=== PATIENT | female | born 1935 | race Caucasian/White ===

== ENCOUNTER 2024-05-29 10:09 | Outpatient (REF) | payer MEDICARE, OTHER, SELFPAY ==
--- NOTE | ~2024-05-29 | XR_ITS ---
EXAMINATION: XR KNEE, RIGHT XR KNEE, LEFT CLINICAL INFORMATION: Right and left knee pain. Osteoarthritis. COMPARISON: None available. TECHNIQUE: AP view of the right and left knee. Lateral and sunrise views of the right knee. FINDINGS: RIGHT KNEE: Moderate lateral compartment joint space narrowing. Tricompartmental marginal osteophytes. No acute fracture or dislocation. No concerning lytic or blastic osseous lesion. No abnormal soft tissue calcification. Trace joint effusion. LEFT KNEE: Moderate medial compartment joint space narrowing with medial and lateral compartment marginal osteophytes. No osseous erosion. No fracture or dislocation. No abnormal soft tissue calcification. XR/XR knee RT 3V IMPRESSION: RIGHT KNEE: Tricompartmental osteoarthritis, most prominent within the lateral compartment. Trace joint effusion. LEFT KNEE: Moderate medial and mild lateral compartment osteoarthritis. Electronically signed by: Tolu Loving MD 06/02/2024 10:22 AM EDT
--- NOTE | ~2024-05-29 | XR_ITS ---
EXAMINATION: XR KNEE, RIGHT XR KNEE, LEFT CLINICAL INFORMATION: Right and left knee pain. Osteoarthritis. COMPARISON: None available. TECHNIQUE: AP view of the right and left knee. Lateral and sunrise views of the right knee. FINDINGS: RIGHT KNEE: Moderate lateral compartment joint space narrowing. Tricompartmental marginal osteophytes. No acute fracture or dislocation. No concerning lytic or blastic osseous lesion. No abnormal soft tissue calcification. Trace joint effusion. LEFT KNEE: Moderate medial compartment joint space narrowing with medial and lateral compartment marginal osteophytes. No osseous erosion. No fracture or dislocation. No abnormal soft tissue calcification. XR/XR knee LT 1V IMPRESSION: RIGHT KNEE: Tricompartmental osteoarthritis, most prominent within the lateral compartment. Trace joint effusion. LEFT KNEE: Moderate medial and mild lateral compartment osteoarthritis. Electronically signed by: Tolu Loving MD 06/02/2024 10:22 AM EDT
== END 2024-05-29 10:10 | disposition home or self-care (01) ==
LOC: HO.HOSX 10:09
DX: M25.562 Pain in left knee (principal); M17.11 Unilateral primary osteoarthritis, right knee
CPT/HCPCS: 20610; 73560; 73562; 99202; J1010

== ENCOUNTER 2024-05-29 10:46 | Outpatient (AMB) | payer MEDICARE, MEDICAID, SELFPAY ==
--- NOTE | 2024-05-29 11:06 | A.OFFVIS_ITS ---
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 Pt states the pain started a year ago with no known injury. Pt states she was in PT and states it wasn't helpful. Pt states it has gotten worse within the past few months. Pt denies any previous injury or cortisone injections. Pt states sometimes her knee will give out. Pt states she uses a heating pad which does help somewhat and states the ibuprofen and tylenol helps sometimes but not all the time. 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 The patient reports that there was no particular inciting event or injury that caused the start of this pain, but states that it has been very consistent since this time. The patient reports that her pain improves with rest, but worsens with activity such as ambulation and any twisting motions with her knee. The patient reports that her pain is worst in the lateral aspect of her right knee, particularly in the lateral joint line and ?inside? the lateral right knee. Patient denies any locking or catching of her right knee. No other acute complaints or concerns at this time. Review of Systems Const All systems reviewed & are unremarkable except as noted in HPI and below Physical Exam Extrem Other: On Inspection, there is a mild effusion of the right knee when compared to the left, particularly in the anterolateral joint line No erythema, ecchymosis noted No lacerations, abrasions, open areas No evidence of infection noted Patient reports no tenderness to palpation in the medial joint line, lateral joint line, patella, peripatellar area, posterior knee Patient is able to extend the right knee to 0 degrees without difficulty Patient is able to flex the right knee to 120 degrees without difficulty Negative Mildred's Distal sensation intact Capillary refill brisk Office Procedures Joint Injection/Aspiration Joint Injection/Aspiration Primary Site: right knee Prep: site was prepped using aseptic technique, ethochloride spray was applied and injection warnings given Injected: 80 mg of, DepoMedrol, with 8 mL of and 1% plain lidocaine Approach Used: anterolateral Procedure: The patient tolerated the procedure well, but had some pain with the injection and there was some relief with the local anesthesia Coding - Large joint Procedure code (CPT) selection complete Results Reviewed Results Reviewed: X-rays obtained in the office today and independently reviewed by me, Pradeep Rosenthal PA-C, demonstrate moderate to severe arthritic changes of the right knee, with significant joint space narrowing and small osteophyte formation. X-rays also revealed moderate arthritic changes of the left knee. No fracture or acute bony abnormality noted Assessment & Plan Assessment & Plan (1) Osteoarthritis of right knee: Code(s): M17.11 - Unilateral primary osteoarthritis, right knee Category: Medical Plan 1. Right knee osteoarthritis Pain ongoing for approximately 5-6 months Conservative, nonoperative, and operative treatment plans were discussed with the patient at this time. The patient would like to proceed with steroid injection of the right knee The risks and benefits of a steroid injection including but not limited to risk of damage to blood vessels, nerves, tendons, infection, skin bleaching, failure to improve symptoms, increased pain, and possible need for further injections or other intervention were discussed with the patient and the patient wishes to proceed with the steroid injection. Once consent was obtained, I aseptically prepped the area over the anterolateral joint line of the right knee. I then injected the area over the lateral epicondyle with a combination of 80 mg of dexamethasone and 8 mL of 1% lidocaine. The patient tolerated the procedure well with no complications. If the patient continues to experience symptoms over the following few weeks or months, they can make an appointment to return and discuss alternative treatment measures, such as physical therapy. Follow-up prn Orders: Orders XR knee RT 3V 05/29/24 M17.11 - Unilateral primary osteoarthritis, right knee XR knee LT 1V 05/29/24 M25.562 - Pain in left knee Coding Level of Care Code New Pt Level 3 (48642) Diagnoses Osteoarthritis of right knee M17.11 CPT Codes Coding - Large joint: 13931 - Large joint ([id number])
== END 2024-05-29 12:16 | disposition home or self-care (01) ==
PROVIDERS: PCP Physician Assistant
DX: M17.11 Unilateral primary osteoarthritis, right knee (principal)
CPT/HCPCS: 20610; 99203

== ENCOUNTER 2024-09-04 09:41 | Outpatient (AMB) | payer MEDICARE, MEDICAID, SELFPAY ==
--- NOTE | 2024-09-04 09:46 | MHC.OFFVIS ---
Vital Signs 09/04/24 09:52 Height 5 ft 4 in Weight 124 lb BMI 21.3 Handedness Right Intake Visit Reasons: OV- Right knee pain, last inj 05/29/24 Intake Note: Nelda is a 88 year old female who presents today for a follow up visit of her right knee OA. Patient received a right knee injection on 05/29/2024 which did not provide her any relief. When she stands her right knee occasionally gives out. Tylenol and heating pad has not offered her any relief. She was once a very active person and is frustrated with how this has stopped her. Patient would like to discuss other treatment option. She has tried physical therapy and went home with activities to try however this also provided no relief in her pain. Allergies No Known Allergies Allergy (Verified 09/04/24 09:53) HPI HPI OV- Right knee pain, last inj 05/29/24: Details: Patient is an 88-year-old female who presents for follow-up evaluation of right knee osteoarthritis with associated pain with previous steroid injection, date of injection 05/29/2024. Today, the patient reports that she experienced very minimal relief, and feels that her knee pain is worse now than it was prior to an injection. The patient states that she feels her knee is unstable, and feels as if it occasionally ?in his out? when she is attempting to rise from a seated position. Patient states she would like to explore any alternative treatment options, except for surgery, which she had adamantly against. No other acute complaints or concerns at this time. Physical Exam Vital Signs: BMI result Body Mass Index 21.3 Extrem Other: On Inspection, there is a mild effusion of the right knee when compared to the left, particularly in the anterolateral joint line No erythema, ecchymosis noted No lacerations, abrasions, open areas No evidence of infection noted Patient reports no tenderness to palpation in the medial joint line, lateral joint line, patella, peripatellar area, posterior knee Patient is able to extend the right knee to 0 degrees without difficulty Patient is able to flex the right knee to 120 degrees without difficulty Negative Mildred's Distal sensation intact Capillary refill brisk Assessment & Plan Assessment & Plan (1) Osteoarthritis of right knee: Code(s): M17.11 - Unilateral primary osteoarthritis, right knee Category: Medical Plan 1. Osteoarthritis of right knee Status post injection on 05/29/2024 Minimal relief with previous injection At this time, patient is educated on alternative treatment options, namely gel injections, physical therapy, and surgical intervention, namely a knee replacement Patient was once again adamant that she has no interest in any surgical intervention, but would like to explore gel injections Patient also states she would like a knee brace to help with the feelings of instability that she experiences We will initiate insurance approval process for gel injections Patient also provided with Genumed knee brace for stabilization of her right knee Patient was informed that once we get approval from her insurance company, we will call to make an appointment for her gel injections if approved Patient was amenable to this plan Patient will follow-up after approval is obtained from her insurance company for gel injections, sooner with any acute concerns Coding Level of Care Code Est Pt Level 3 (96477) Diagnoses Osteoarthritis of right knee M17.11
[2024-09-04 09:52] VITALS: BMI 21.3
== END 2024-09-04 10:07 | disposition home or self-care (01) ==
PROVIDERS: PCP Physician Assistant
DX: M17.11 Unilateral primary osteoarthritis, right knee (principal)
CPT/HCPCS: 99213

== ENCOUNTER → 2024-09-04 09:41 | Outpatient (BNVA) | payer MEDICARE, MEDICAID, SELFPAY | PROVIDERS: PCP Physician Assistant | DX: M17.11 Unilateral primary osteoarthritis, right knee (principal) | CPT/HCPCS: 99212 ==

== ENCOUNTER 2024-10-30 10:49 | Outpatient (AMB) | payer MEDICARE, MEDICAID, SELFPAY ==
--- NOTE | 2024-10-30 10:50 | A.OFFVIS_ITS ---
Vital Signs 10/30/24 10:51 Height 5 ft 4 in Weight 124 lb BMI 21.3 Intake Visit Reasons: Inj- RT knee Durolane inj Intake Note: Nelda is a 88 year old female who presents today for a right knee Durolane injection. Allergies No Known Allergies Allergy (Verified 10/30/24 10:58) HPI HPI Inj- RT knee Durolane inj: Details: Patient is an 88-year-old female who presents for right knee Durolane injection. [facility] Social History (Updated 10/30/24 @ 10:58 by TANGELA Diehl) Current occupational status: retired Physical Exam Vital Signs: BMI result Body Mass Index 21.3 Office Procedures Joint Inj/Aspir; Non-Pain Clin Joint Injection/Drain Prep: site was prepped using aseptic technique and injection warnings given Approach Used: anterolateral Procedure: The patient tolerated the procedure well and but had some pain with the injection Shoulders, Hips, Knees, Knee Large Joint Injection 24060: Right Knee Coding Procedure code (CPT) selection complete Assessment & Plan Assessment & Plan (1) Osteoarthritis of right knee: Code(s): M17.11 - Unilateral primary osteoarthritis, right knee Category: Medical Plan 1. Osteoarthritis of right knee Durolane injection performed today Patient is educated that she can not get another Durolane injection for 6 months Patient expresses understanding of this Patient will follow-up as needed with any acute concerns Coding Level of Care Code Procedure Only Diagnoses Osteoarthritis of right knee M17.11 CPT Codes Shoulders, Hips, Knees, - Knee Large Joint Injection 76657: Right Knee ([id number])
[2024-10-30 10:51] VITALS: BMI 21.3
--- OUTSIDE RECORDS SUMMARY | 2024-10-30 15:37 | XMS_ITS | Clinical Summary ---
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 28 g 2 09/05/20 20 Active fluticasone propionate (FLONASE) 50 mcg/actuation nasal sprayIndications: Nasal congestion USE 1 SPRAY IN EACH NOSTRIL TWICE DAILY FOR 30 DAYS 48 mL 3 09/22/20 21 Active meclizine 25 mg chewable tabletIndications :Vertigo Place 1 Tablet into mouth, chew and swallow 3 (three) times daily as needed for nausea 20 Tablet 1 12/08/19 23 Active blood pressure kit med and lrgIndications:Pr imary hypertension Check blood pressure once daily goal < 130/80 1 Kit 08/03/20 23 Active gabapentin (NEURONTIN) 100 mg capsule TAKE 1 CAPSULE BY MOUTH ONCE AT NIGHT FOR 5 DAYS, THEN 1 CAP BY MOUTH TWICE A DAY 08/11/20 23 Active PROLENSA 0.07 % drop INSTILL 1 DROP INTO AFFECTED EYE EVERY EVENING DIRECTED 09/09/20 23 Active celecoxib (CELEBREX) 200 mg capsule Take 200 mg by mouth once daily 09/14/20 23 Active scopolamine (TRANSDERM-SCOP) 1 mg over [address]: [address] 1 Patch onto the skin every third day (every 72 hours) 24 Patch 1 01/28/20 24 Active nystatin (MYCOSTATIN) 100,000 unit/gram powderIndications :Tinea corporis APPLY TO AFFECTED AREA TWICE A DAY 30 g 3 05/10/20 24 Active acyclovir (ZOVIRAX) 400 mg tabletIndications :HSV (herpes simplex virus) infection TAKE 1 TABLET BY MOUTH TWICE A DAY 180 Tablet 1 06/01/20 24 Active levothyroxine 100 mcg tabletIndications :Acquired hypothyroidism TAKE 1 TABLET BY MOUTH EVERY DAY 90 Tablet 1 07/24/20 24 Active acetaminophen (TYLENOL 8 HOUR) 650 mg CR tablet TAKE 1 TABLET BY MOUTH EVERY 8 HOURS NEEDED FOR PAIN 60 Tablet 1 08/07/20 24 Active lovastatin (MEVACOR) 10 mg tabletIndications :Hypercholesterol emia TAKE 1 TABLET BY MOUTH ONCE DAILY WITH DINNER 90 Tablet 3 10/26/19 25 026 Active OYSTER SHELL CALCIUM-VIT D3 500 mg-10 mcg (400 unit) tabletIndications :Osteopenia, unspecified location TAKE 1 TABLET BY MOUTH EVERY DAY 90 Tablet 1 10/30/19 25 Active acyclovir (ZOVIRAX) 5 % ointmentIndicatio ns:Herpetic lesion Apply topically every 4 to 6 (four to six) hours as needed for other reason (lesions) To visible lesions 30 g 3 10/30/19 25 Active lovastatin (MEVACOR) 10 mg tabletIndications :Hypercholesterol emia Take 1 Tablet by mouth once daily with dinner 90 Tablet 3 09/29/20 23 025 Discontinued acyclovir (ZOVIRAX) 5 % ointmentIndicatio ns:Herpetic lesion Apply topically every 4 to 6 (four to six) hours as needed for other reason (lesions) To visible lesions 30 g 3 04/05/20 24 025 Discontinued CALCIUM 500 WITH D 500 mg-10 mcg (400 unit) tabletIndications :Osteopenia, unspecified location TAKE 1 TABLET BY MOUTH EVERY DAY 90 Tablet 1 05/04/20 24 025 Discontinued Active Problems Problem Noted Date Diagnosed Date Acquired atrophy of thyroid 08/10/2022 Depression 08/10/2022 Acquired hypothyroidism 06/18/2022 Major depressive disorder wi th single episode, in remission ([facility]) 06/18/2022 Encounter for screening colonoscopy 06/18/2022 Herpes simplex vulvovaginitis 06/18/2022 Osteopenia 06/22/2021 Mixed hyperlipidemia 07/06/2019 Resolved Problems Problem Noted Date Diagnosed Date Resolved Date Genital herpes simplex 08/10/202211/11 Immunizations Name Administration Dates Next Due Flu, High Dose, 65y+, Fluzon e High Dose 08/03/2023,07/31/2022,05/23/2020 INFLUENZA, SEASONAL, INJECTABLE 08/04/20 18,07/04/2017,07/30/2016,09/10,07/03/2014,07/18/2013,08/13/2006 ,08/07/2005,09/05/2001 Influenza (FLUZONE), high-do se, trivalent, PF 06/17/2019,06/17/2019,08/06/2018,08/06,07/03/2017,07/03/2017 Influenza, Whole 06/29/2012, 1,07/21/2010,07/03,07/18/2008,08/19/2007 MODERNA COVID-19 VACCINE BIV ALENT, BLUE CAP, 6M+ 08/10/2022 PFIZER COVID VACCINE, PURPLE CAP, 12+ ,12/04/2020,12/04/2020,11/13,11/13/2020 PNEUMOCOCCAL CONJUGATE PCV 13 06/27/2020, 015 PNEUMOCOCCAL POLYSACCHARIDE PPV23 01/01/2022,01/2005 PPD 08/01/2019 TDAP 04/09/2021 Td (adult) unspecified 11/25/2009 ZOSTER VACCINE, RECOMBINANT (SHINGRIX) 0 04/09/2021,06/10/2018,06/10/2018,06/10 Family History Medical History Relation Name Comments mva Son 1 Alcohol/Drug Abuse Son 2 Relation Name Status Comments Daughter Alive Father Mother Son 1 Son 2 Alive Son 3 Alive Son 4 Alive Social History Tobacco Use Types Packs/Day Years Used Date Smoking Tobacco: Never Smokeless Tobacco: Never Tobacco Cessation:Counseling Given: Not Answered Alcohol Use Standard Drinks/Week Comments Never 0 (1 standard drink = 0.6 oz pur e alcohol) Social Connections Answer Date Recorded Connectedness 1 04/05/2024 Financial Resource Strain Answer Date R ecorded Financial Resource Strain 1 2023 Stress Answer Date Recorded Stress 1 04/05/2024 Physical Activity Answer Date Recorded Physical Activity 0 07/06/2019 Food Insecurity Answer Date Recorded Food 1 04/05/2024 Transportation Needs Answer Date Record ed Transportation 1 04/05/2024 Housing Stability Answer Date Recorded Housing 1 04/05/2024 Safety and Environment Answer Date Jorge rded Safety 1 04/05/2024 Utilities Answer Date Recorded Utilities 1 04/05/2024 Employment Answer Date Recorded Employment 0 07/06/2019 Comments No Sex and Gender Information Value Date Recorded Sex Assigned at Female 07/06/2019 6:43 AM PDT Legal Sex Female 10:37 AM PDT Gender Identity Female 07/06/2019 6:43 AM PDT Sexual Orientation Straight 07/06/2019 6: 43 AM PDT Last Filed Vital Signs Vital Sign Reading Time Taken Comments Blood Pressure 148/82 04/05/2024 4:09 PM EDT Pulse 78 04/05/2024 4:09 PM EDT Temperature 36.8 ??C (98.3 ??F) 04/05/2024 4:09 PM ED T Respiratory Rate 18 04/05/2024 4:09 PM EDT Oxygen Saturation 95% 04/05/2024 4:09 PM EDT Inhaled Oxygen Concentration - - Weight 57.6 kg (127 lb) 04/05/2024 4:09 PM EDT Height 157.5 cm (5' 2 ) 04/05/2024 4:09 PM EDT Body Mass Index 23.23 04/05/2024 4:09 PM EDT Plan of Treatment Health Maintenance Due Date Last Done Comments Advanced Care Planning 01/25/1936 Medicare Annual Wellness Visit 05/05/2024 0 05/05/2023, 08/10/2022, 04/09/2021 [id number] ( season) 2024 08/10/2022, 09/22/2021, 12/04/2020, Additional history exists Imm-Influenza (#1) 2024 08/03/2023, 1 , 05/23/2020, Additional history exists Depression Monitoring 07/06/2024 04/05/2024 , 07/08/2023, 02/10/2023, Additional history exists Falls Prevention 09/29/2024 09/29/2023, 04/2022, 04/09/2021 Alcohol and Drug Screen 10/04/2024 04/05/20, 04/05/2024, 07/08/2023, Additional history exists Hypertension Screening (#1) 04/05/2025 TSH Monitoring 04/05/2025 04/05/2024, 06/0 10/2022, 01/05/2022, Additional history exists Tobacco Screening 04/05/2025 04/05/2024 Imm-DTaP/Tdap/Td (2 - Td or Tdap) 04/09/2031 021, 11/25/2009 Imm-Zoster, Recombinant Completed 04/09/20 21, 06/10/2018, 06/10/2018, Additional history exists Bone Density Screening Completed 06/11/2021 Imm-Pneumococcal 65+ Completed 01/01/2022, 06/27/2020, 03/29/2015, Additional history exists Procedures Procedure Name Priority Date/Time Associated Diagnosis Comments REFERRAL TO ORTHOPEDICS Routine 09/04/2024 3:00 AM EST Right leg pain TSH W/RFLX FREE T4 Routine 04/05/2024 4: 37 PM EDT Dizziness Abnormal results of thyroid function studies REFERRAL FOR BONE DENSITY TESTING Routine 06/11/2021 12:00 AM EDT Screening for osteoporosis from Last 3 Months or Most Recently Relevant to Health Maintenance Results * REFERRAL TO ORTHOPEDICS (09/04/2024 3:00 AM EST) 09/04/2024 3:00 AM EST Sanjiv WATTS REFERRAL Final Result * (ABNORMAL) TSH W/RFLX FREE T4 (04/05/2024 4:37 PM EDT) TSH W/REFLEX TO FT4 0.33(L) 0.40 - 4.50 mIU/L [facility] Blood Blood / Unknown 04/05/2024 4 :37 PM EDT 04/05/2024 4:37 PM EDT Sanjiv WATTS LAB - BLOOD DRAW Final Result [facility] [address] [address], [facility] [address] [place] [address] * REFERRAL FOR BONE DENSITY TESTING (06/11/2021 12:00 AM EDT) 06/11/2021 Sanjiv WATTS IMG RFL DXA Edited Result - Final from Last 3 Months or Most Recently Relevant to Health Maintenance Insurance [employer] Care Teams Packaging Line Operator Relationship Specialty Start Date End Date Sanjiv Ruiz PA [address] [place] [id number] PCP - General Internal Medicine 05/26/19
== END 2024-10-30 11:07 | disposition home or self-care (01) ==
PROVIDERS: PCP Physician Assistant
DX: M17.11 Unilateral primary osteoarthritis, right knee (principal)
CPT/HCPCS: 20610

== ENCOUNTER → 2024-10-30 10:49 | Outpatient (BNVA) | payer MEDICARE, MEDICAID, SELFPAY | PROVIDERS: PCP Physician Assistant | DX: M17.11 Unilateral primary osteoarthritis, right knee (principal) | CPT/HCPCS: 20610; J7318 ==

== ENCOUNTER 2025-07-24 13:38 | Outpatient (AMB) | payer MEDICARE, MEDICAID, SELFPAY ==
[2025-07-24 14:02] VITALS: BMI 21.3
--- NOTE | 2025-07-24 14:02 | MHC.OFFVIS ---
Vital Signs 07/24/25 14:02 07/24/25 14:02 Height 5 ft 4 in 5 ft 4 in Weight 124 lb 124 lb BMI 21.3 21.3 Intake Visit Reasons: OV-Rt knee Durolane inj f/u Intake Note: Nelda is an 89 year old female who presents today for follow up of her Right Knee Osteoarthritis. She was last seen 10/30/24 where she was given a Right Knee Durolane injection. Patient states the injection provided good relief however at this time she would like to have a right knee cortisone injection. Accompanied by: cousinTatum Allergies No Known Allergies Allergy (Verified 07/24/25 14:02) HPI HPI OV-Rt knee Durolane inj f/u: Details: Nelda is an 89 year old female who presents today for follow up of her Right Knee Osteoarthritis. She was last seen 10/30/24 where she was given a Right Knee Durolane injection. Patient states the injection provided good relief however at this time she would like to have a right knee cortisone injection. [facility] Social History (Updated 10/30/24 @ 10:58 by TANGELA Diehl) Current occupational status: retired Review of Systems Const All systems reviewed & are unremarkable except as noted in HPI and below Physical Exam Vital Signs: BMI result Body Mass Index 21.3 Extrem Other: On Inspection, there is a mild effusion of the right knee when compared to the left, particularly in the anterolateral joint line No erythema, ecchymosis noted No lacerations, abrasions, open areas No evidence of infection noted Patient reports no tenderness to palpation in the medial joint line, lateral joint line, patella, peripatellar area, posterior knee Patient is able to extend the right knee to 0 degrees without difficulty Patient is able to flex the right knee to 120 degrees without difficulty Antalgic gait noted, particularly of the right leg Negative Mildred's Distal sensation intact Capillary refill brisk Assessment & Plan Assessment & Plan (1) Osteoarthritis of right knee: Code(s): M17.11 - Unilateral primary osteoarthritis, right knee Category: Medical Plan 1. Osteoarthritis of right knee Patient is educated about this condition Patient is educated about the typical treatment course At this time, I feel it is most prudent for the patient to get repeat authorization for another gel injection, as steroid injections previously have not been helpful and she did get good relief for approximately 8 months with gel injections I do not feel that repeating steroid injection is necessarily the best thing for her, as she did not get good relief from previous steroid injections. Patient will follow-up after we get authorization for repeat gel injections, sooner with any acute concerns Coding Level of Care Code Est Pt Level 3 (83197) Diagnoses Osteoarthritis of right knee M17.11
--- OUTSIDE RECORDS SUMMARY | 2025-07-24 17:56 | XMS_ITS | Clinical Summary ---
Author Organization [address] [place] [address] Address [address] [place] [address] Phone Care Team Providers Care Manufacturers Service Representative Name Role Phone Avelina Ruiz Primary Care Provider [phone] Allergies No known active allergies Social History Tobacco Use Types Packs/Day Years Used Date Smoking Tobacco: Never Assessed Comments Unknown Sex and Gender Information Value Date Recorded Sex Assigned at Female 03/23/2025 11:06 AM EDT Legal Sex Female 1:49 AM EST Gender Identity Female 03/23/2025 11:06 AM EDT Sexual Orientation Straight 03/23/2025 11 :06 AM EDT Plan of Treatment Health Maintenance Due Date Last Done Comments RSV Immunization Adult Patients (1 - 1-dose 75+ series) 2012 Falls Risk Assessment 09/06/2022 Medicare Annual Wellness Visit 09/06/2022 Social Influencers of Health Screening 09/06/2022 Depression Screening 10/04/2024 COVID-19 Vaccine ( season) 2025 08/10/2022, 09/22/2021, 12/04/2020, Additional history exists Influenza Vaccine (#1) 2025 , 07/31/2022, 05/23/2020, Additional history exists Cholesterol Screening (Lipid Panel) 12/05/2029 12/05/2024, 12/05/2024, 04/09/2021, Additional history exists DTaP,Tdap,and Td Vaccines (3 - Td or Tdap) 04/09/2031 04/09/2021, 11/25/2009 Osteoporosis Screening (Bone Density Screening) 06/11/2031 06/11/2021 Zoster Vaccines Completed 04/09/2021, 06/10/2018 Pneumococcal Vaccine: 50+ Years Completed 01/01/2022, 06/27/2020, 03/29/2015, Additional history exists HIB Vaccines Aged Out No longer eligi ble based on patient's age to complete this topic HPV Vaccines Aged Out No longer eligi ble based on patient's age to complete this topic Hepatitis A Vaccines Aged Out No long er eligible based on patient's age to complete this topic Hepatitis B Vaccines Aged Out No long er eligible based on patient's age to complete this topic IPV Vaccines Aged Out No longer eligi ble based on patient's age to complete this topic MMR Vaccines Aged Out No longer eligi ble based on patient's age to complete this topic Meningococcal ACWY Vaccine Aged Out N o longer eligible based on patient's age to complete this topic Meningococcal B Vaccine Aged Out No l onger eligible based on patient's age to complete this topic RSV Immunization Patients Under 20 months Aged Out No longer eligible based on patient's age to complete this topic Varicella Vaccines Aged Out No longer eligible based on patient's age to complete this topic Procedures Procedure Name Priority Date/Time Associated Diagnosis Comments [facility] DEXA AXIAL SKELETON Routine 06/11/2021 11:36 AM EDT Encounter for screening for osteoporosis from Last 3 Months or Most Recently Relevant to Health Maintenance Results * [facility] DEXA AXIAL SKELETON (06/11/2021 11:36 AM EDT) Anatomical Region Laterality Modality Mammography 06/11/2021 10:1 0 AM EDT Narrative 06/11/2021 11:36 AM EDT Diagnostic Imaging Department [address] [place], [place] [id number] Patient: NELDA ESPINOZAO.B./Age/Sex: 1935 - 85 - F Unit#: [id number] Location/Status: SPDIMAM/REG CLI Mnemonic/Ordering Site: MAMDEXAAX/SPMAM Ordering Physician: AVELINA RUIZ Pedro Dexa Axial Skeleton - 06/11/21 - HISTORY: The patient is an 85-year-old postmenopausal female on chronic glucocorticoid therapy, with clinical concern for metabolic bone disease. FINDINGS: Dual energy x-ray absorptiometry of the lumbar spine and femurs is performed. The mean bone mineral density at L1-2 is 0.993 gm/cm2 which is 85% of that of young normals and 109% of that of age matched controls. This yields a T- score of -1.4 and a Z-score of 0.6 which is diagnostic of osteopenia. The mean bone mineral density of the femurs bilaterally is 0.854 gm/cm2 which is 85% of that of young normals and 119% of that of age matched controls. This yields a T-score of -1.2 and a Z-score of 1.1 which is diagnostic of osteopenia. The T-score of the right femoral neck is -1.6 and that of the left femoral neck is -1.3 which is diagnostic of osteopenia. IMPRESSION: 1. Osteopenia. 2. FRAX analysis yields a 10-year probability of major osteoporotic fracture of 27.3% and a 10-year probability of hip fracture of 8.2%. Code 17315 Dictating Physician: FIDELINA GREGORY MD Electronically Signed by: FIDELINA GREGORY MD Dic Date/Time: 06/11/21 1135 Sign date/Time: 06/11/21 1136 Procedure Note Fidelina Gregory MD - 09/30/2022 Diagnostic Imaging Department [address] [place] [address] Patient: NELDA ESPINOZA /Age/Sex: 1935 - 85 - F Unit#: [id number] Location/Status: SPDIMAM/REG CLI Mnemonic/Ordering Site: MAMDEXAAX/SPMAM Ordering Physician: AVELINA RUIZ Pedro Dexa Axial Skeleton - 06/11/21 - HISTORY: The patient is an 85-year-old postmenopausal female on chronic glucocorticoid therapy, with clinical concern for metabolic bonedisease. FINDINGS: Dual energy x-ray absorptiometry of the lumbar spine and femursis performed. The mean bone mineral density at L1-2 is 0.993 gm/cm2 which is85% of that of young normals and 109% of that of age matched controls. Thisyields a T- score of -1.4 and a Z-score of 0.6 which is diagnostic of osteopenia. The mean bone mineral density of the femurs bilaterally is 0.854 gm/ew1vhytx is 85% of that of young normals and 119% of that of age matched controls.This yields a T-score of -1.2 and a Z-score of 1.1 which is diagnostic ofosteopenia. The T-score of the right femoral neck is -1.6 and that of the left femoralneck is -1.3 which is diagnostic of osteopenia. IMPRESSION: 1. Osteopenia. 2. FRAX analysis yields a 10-year probability of major osteoporoticfracture of 27.3% and a 10-year probability of hip fracture of 8.2%. Code 25817 Dictating Physician: FIDELINA GREGORY MD Electronically Signed by: FIDELINA GREGORY MD Dic Date/Time: 06/11/21 1135 Sign date/Time: 06/11/21 1136 Avelina WATTS IMG BI PROCEDURES Final Result from Last 3 Months or Most Recently Relevant to Health Maintenance Insurance [employer] MEDICARE ADVANTAGE MEDICAID - [place] Care Teams Manufacturers Service Representative Relationship Specialty Start Date End Date Avelina Ruiz PA [address] [place] [address] PCP - General 04/07/24
== END 2025-07-24 14:18 | disposition home or self-care (01) ==
LOC: HO.HOS 13:39
PROVIDERS: PCP Physician Assistant
DX: M17.11 Unilateral primary osteoarthritis, right knee (principal)
CPT/HCPCS: 99213

== ENCOUNTER → 2025-07-24 13:38 | Outpatient (BNVA) | payer MEDICARE, MEDICAID, SELFPAY | PROVIDERS: PCP Physician Assistant | DX: M17.11 Unilateral primary osteoarthritis, right knee (principal) | CPT/HCPCS: 99212 ==

== ENCOUNTER 2025-08-21 12:57 | Outpatient (AMB) | payer MEDICARE, MEDICAID, SELFPAY ==
--- NOTE | 2025-08-21 13:13 | MHC.OFFVIS ---
Vital Signs 08/21/25 13:17 Height 5 ft 4 in Weight 124 lb BMI 21.3 Intake Visit Reasons: Inj- RT knee Synvisc One inj Intake Note: Nelda is an 89 year old female who presents today for Follow Up of her Right Knee Osteoarthritis and a Right Knee Synvisc One Injection. Of note, patient had a Right Durolane Injection on 10/30/24. Allergies No Known Allergies Allergy (Verified 08/21/25 13:18) HPI HPI Inj- RT knee Synvisc One inj: Details: Nelda is an 89 year old female who presents today for Follow Up of her Right Knee Osteoarthritis and a Right Knee Synvisc One Injection. Of note, patient had a Right Durolane Injection on 10/30/24. No new complaints or concerns at this time. [facility] Social History (Updated 10/30/24 @ 10:58 by TANGELA Diehl) Current occupational status: retired Review of Systems Const All systems reviewed & are unremarkable except as noted in HPI and below Physical Exam Vital Signs: BMI result Body Mass Index 21.3 Office Procedures Joint Inj/Aspir; Non-Pain Clin Joint Injection/Drain Prep: site was prepped using aseptic technique and injection warnings given Approach Used: anterolateral Procedure: The patient tolerated the procedure well and but had some pain with the injection Shoulders, Hips, Knees, Knee Large Joint Injection 55616: Right Knee Coding Procedure code (CPT) selection complete Assessment & Plan Assessment & Plan (1) Osteoarthritis of right knee: Code(s): M17.11 - Unilateral primary osteoarthritis, right knee Category: Medical Plan 1. Osteoarthritis of right knee Synvisc 1 injection performed today Patient is educated that she can not get another Synvisc injection for 6 months Patient expresses understanding of this Patient will follow-up as needed with any acute concerns Coding Level of Care Code Procedure Only Diagnoses Osteoarthritis of right knee M17.11 CPT Codes Shoulders, Hips, Knees, - Knee Large Joint Injection [id number]: Right Knee ([id number])
[2025-08-21 13:17] VITALS: BMI 21.3
== END 2025-08-21 13:25 | disposition home or self-care (01) ==
LOC: HO.HOS 12:57
PROVIDERS: PCP Physician Assistant
DX: M17.11 Unilateral primary osteoarthritis, right knee (principal)
CPT/HCPCS: 20610

== ENCOUNTER → 2025-08-21 12:57 | Outpatient (BNVA) | payer MEDICARE, MEDICAID, SELFPAY | PROVIDERS: PCP Physician Assistant | DX: M17.11 Unilateral primary osteoarthritis, right knee (principal) | CPT/HCPCS: 20610; J7325 ==